=== PATIENT | female | born 1980 | race Caucasian/White ===

== ENCOUNTER → 2019-10-06 | Outpatient (CLI) | payer OTHER ==
--- NOTE | 2019-10-06 09:12 | MM ---
Reason for exam: additional evaluation requested from prior study. History: Took hormonal contraceptives for 11 years. Physical Findings: Nurse did not find any significant physical abnormalities on exam. [facility] Mammo w CAD KAYLEE Bilateral CC and MLO view(s) were taken. No prior studies available for comparison. The breast tissue is heterogeneously dense. This may lower the sensitivity of mammography. There is no discrete abnormality. These results were verbally communicated with the patient and result sheet given to the patient on 10/06/19. ASSESSMENT: Negative, BI-RAD 1 RECOMMENDATION: Routine screening mammogram of both breasts in 1 year.
--- NOTE | 2019-10-06 09:13 | USB ---
Reason for exam: clinical finding. History: Took hormonal contraceptives for 11 years. US Breast BILAT Right complete breast ultrasound includes all four quadrants, the retroareolar region and axilla. Finding demonstrates no cystic or solid lesion seen. Left complete breast ultrasound includes all four quadrants, the retroareolar region and axilla. Finding demonstrates no cystic or solid lesion seen. These results were verbally communicated with the patient and result sheet given to the patient on 10/06/19. ASSESSMENT: Negative, BI-RAD 1 RECOMMENDATION: Routine screening mammogram of both breasts in 1 year. Manage patient on a clinical basis.
== END | disposition home or self-care (01) ==
LOC: RADMAMWWP 07:34
PROVIDERS: ATTEND Family Medicine
DX: N64.4 Mastodynia (principal)
CPT/HCPCS: 77066

== ENCOUNTER → 2021-09-29 | Outpatient (CLI) | payer OTHER ==
--- NOTE | 2021-09-29 15:58 | US ---
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 Lipoma of upper arm per order. Palpable area x 1 month within the left upper arm. Scanned patient's palpable area of concern within the left medial upper arm. Area of tissue seen with indistinct borders that appears isoechoic to surrounding tissue. Questionabl e- normal tissue versus other. This area appears to measure 3.1 x 3.3 x 1.3 cm. IMPRESSION: 1. Consider a lipoma of the extremity. This could be further evaluated with MRI.
== END | disposition home or self-care (01) ==
LOC: RADUSWWP 15:30
PROVIDERS: ATTEND Family Medicine
DX: D17.20 Benign lipomatous neoplasm of skin and subcutaneous tissue of unspecified limb (principal)

== ENCOUNTER → 2022-06-16 | Outpatient (CLI) | payer OTHER ==
--- NOTE | 2022-06-17 07:48 | US ---
EXAMINATION TYPE: US transvaginal DATE OF EXAM: 06/16/2022 COMPARISON: NONE CLINICAL HISTORY: 41-year-old female R14.0 ABDOMINAL DISTENSION (GASEOUS). Patient states having diar olivia, N/V, and bloating. Uterus removed. TECHNIQUE: Transvaginal (TV). Date of LMP: Unknown FINDINGS: EXAM MEASUREMENTS: Right Ovary: 3.0 x 1.8 x 1.6 cm for a volume of 4.5 mL. Left Ovary: 2.6 x 1.6 x 2.2 cm for a volume of 4.9 mL. 1. Uterus: Surgically absent 2. Endometrium: Surgically absent 3. Right Ovary: Follicles seen 4. Left Ovary: Follicles seen 5. Bilateral Adnexa: wnl 6. Posterior cul-de-sac: no free fluid IMPRESSION: Status post hysterectomy. No evident adnexal abnormality. Follicular change in both ovaries.
== END | disposition home or self-care (01) ==
LOC: RADUSWWP 16:19
PROVIDERS: ATTEND Family Medicine
DX: R14.0 Abdominal distension (gaseous) (principal); Z90.710 Acquired absence of both cervix and uterus
CPT/HCPCS: 76830

== ENCOUNTER → 2022-12-18 | Outpatient (CLI) | payer OTHER ==
--- NOTE | 2022-12-18 17:01 | NM ---
EXAMINATION TYPE: NM hepatobiliary w CCK DATE OF EXAM: 12/18/2022 COMPARISON: NONE CLINICAL INDICATION: Female, 42 years old with history of R10.11 RIGHT UPPER QUADRANT PAIN; TECHNIQUE: After the intravenous administration of 5.1 mCi Tc 99m Mebrofenin hepatobiliary scintigrap hy is performed. Immediate images post injection. FINDINGS: There is satisfactory initial accumulation of tracer by the liver. The gallbladder is visualized wit hin 20 minutes. The small bowel activity is noted within 10 minutes. At one hour CCK was administer ed, patient was injected with 1.86 mcg of Kinevac, and gallbladder ejection fraction is calculated at 24%. IMPRESSION: Diminished gallbladder ejection fraction which may reflect chronic cholecystitis and/or b iliary dyskinesia.
== END | disposition home or self-care (01) ==
LOC: RADNMMAIN 12:32
PROVIDERS: ATTEND Family Medicine
DX: R10.11 Right upper quadrant pain (principal)
CPT/HCPCS: 78227; A9537; J2805

== ENCOUNTER 2023-06-10 11:12 | Day surgery (SDC) | payer OTHER ==
[2023-06-07 16:01] VITALS: BMI 33.6
[~2023-06-10 11:12] MED LIST: HYDROmorphone 0.5 MG/0.5 ML SYRINGE IVP PRN; LACTATED RINGERS 1,000 ML IV SCH
[2023-06-10 11:54] VITALS: RESP 16
[2023-06-10] MEDS: LACTATED RINGERS 1,000 ML IV SCH (12:04)
[2023-06-10] MEDS: ACETAMINOPHEN TAB 500 MG TAB PO PRN (12:17)
[2023-06-10] MEDS: HEPARIN SODIUM,PORCINE 5,000 UNIT/ML 1 ML VIAL SQ PRN (12:17)
[2023-06-10] MEDS: ONDANSETRON 4 MG/2 ML VIAL IVP ONE (12:17)
[2023-06-10] MEDS: DEXAMETHASONE SOD PHOSPHATE 4 MG/ML 1 ML VIAL IV ONE (12:17)
[2023-06-10 12:23] LABS: HCT 44.7 % (34.0-46.0); HGB 15.8 gm/dL (11.4-16.0); MCH 31.4 pg (25.0-35.0); MCHC 35.3 g/dL (31.0-37.0); MCV 88.9 fL (80.0-100.0); Platelet Count 255 k/uL (150-450); RBC 5.02 m/uL (3.80-5.40); RDW 13.5 % (11.5-15.5); WBC 10.4 k/uL (3.8-10.6)
[2023-06-10] MEDS ORDERED: PROPOFOL 10 MG/ML 20 ML VIAL IV ONE (12:49)
[2023-06-10] MEDS ORDERED: ROCURONIUM 10 MG/ML (5 ML VIAL) IV ONE (12:49)
[2023-06-10] MEDS ORDERED: KETOROLAC 15 MG/ML 1 ML VIAL ONE (12:49)
[2023-06-10] MEDS ORDERED: SUCCINYLCHOLINE CHLORIDE 200 MG/10 ML VIAL IV ONE (12:49)
[2023-06-10] MEDS ORDERED: GLYCOPYRROLATE 0.2 MG/ML 2 ML VIAL ONE (12:49)
[2023-06-10] MEDS ORDERED: fentaNYL (PF) 50 MCG/ML 2 ML AMP ONE (12:49)
[2023-06-10] MEDS ORDERED: LIDOCAINE 1% INJ 10MG/ML (20 ML MDV) ONE (12:49)
[2023-06-10] MEDS ORDERED: HYDROmorphone (PF) 1 MG/ML ONE (12:49)
[2023-06-10] MEDS ORDERED: MIDAZOLAM 2 MG/2 ML VIAL ONE (12:49)
[2023-06-10] MEDS ORDERED: NEOSTIGMINE 1 MG/ML 10 ML VIAL ONE (12:49)
[2023-06-10 13:04] LABS: African American GFR (CKD) >90 (>60 ml/min/1.73 sqM); Anion Gap 8 mmol/L; Blood Urea Nitrogen 8 mg/dL (7-17); Calcium 9.4 mg/dL (8.4-10.2); Carbon Dioxide 23 mmol/L (22-30); Chloride 107 mmol/L (98-107); Glucose 77 mg/dL (74-99); Non-African American GFR(CKD) >90 (>60 ml/min/1.73 sqM); Potassium 4.6 mmol/L (3.5-5.1); Sodium 138 mmol/L (137-145)
[2023-06-10] MEDS: BUPIVACAINE (PF) 0.25% 30 ML VIAL SQ ONE (13:15)
--- NOTE | 2023-06-10 13:57 | P.OP ---
Date of Procedure: 06/10/23 Procedure(s) Performed: PREOPERATIVE DIAGNOSIS: Biliary dyskinesia POSTOPERATIVE DIAGNOSIS: Same PROCEDURE: Laparoscopic cholecystectomy SURGEON: Collins EBL: Minimal see anesthesia record ANESTHESIA: Gen. COMPLICATIONS: None OPERATIVE PROCEDURE: The patient was brought and placed on the operating room table in the supine position. The patient was placed under general anesthesia at that time. The abdomen was prepped and draped in the usual sterile fashion. A small vertical infraumbilical incision was made. The fascia was grasped with the Sarahi forceps. The fascia was retracted anteriorly. The Veress needle was advanced into the peritoneal cavity. The saline drop test was normal. Insufflation took place up to 15 mmHg. A 5 mm optical trocar was advanced and the peritoneal cavity. 2 additional 5 mm trochars were placed in the right upper quadrant under direct visualization. A 12 mm trocar was advanced into the epigastric incision site. The gallbladder was retracted superiorly and laterally. The peritoneum overlying the infundibulum was bluntly dissected. The patient's cystic duct was visualized. The junction between the cystic duct common and hepatic duct was identified. The critical view of safety was achieved after blunt dissection. The cystic duct was then divided after p lacement of 3 12 mm clips on the patient's side and one on the specimen side. The cystic artery was identified and clipped as well. A small vessel was seen along the gallbladder fossa and clipped as well. The gallbladder was then removed from the liver bed using electrocautery. The gallbladder was then removed from the epigastric trocar site with an Endo Catch bag. The gallbladder fossa was irrigated with saline. There was no evidence of any bleeding or biliary drainage seen. The fascia at the 12 millimeter site was closed using a Oscar-Crow 0 Vicryl stitch. The trochars were then removed. The skin at all 4 sites was closed using a 4-0 Monocryl stitch. Skin glue was utilized on the incision sites. At the end of this procedure the sponge and needle counts were correct. DISPOSITION: Stable to the recovery room
[2023-06-10 14:36] VITALS: TEMP 96.8
[2023-06-10 15:13] VITALS: BP 148/98
[2023-06-10 15:14] VITALS: PULSE 78
[2023-06-10] MEDS ORDERED: ONDANSETRON 4 MG/2 ML VIAL ONE (15:16)
[2023-06-10] MEDS: droPERidol 5 MG/2 ML VIAL IVP ONE (16:15)
== END 2023-06-10 17:15 | disposition home or self-care (01) ==
LOC: OR 11:12
PROVIDERS: ATTEND Surgery
DX: K81.2 Acute cholecystitis with chronic cholecystitis (principal); I10 Essential (primary) hypertension; K21.9 Gastro-esophageal reflux disease without esophagitis; F12.90 Cannabis use, unspecified, uncomplicated; Z79.899 Other long term (current) drug therapy; Z90.710 Acquired absence of both cervix and uterus; Z91.040 Latex allergy status
CPT/HCPCS: 88304; 80048; 85027; 47562; J2250; J0330; J1644; J1100; J2710; J0690; J2405; J2001; J3010; J1170; J1885; J2704; J1790; J0665

== ENCOUNTER → 2024-02-19 | Outpatient (CLI) | payer OTHER ==
[2024-02-19 23:00] LABS: ALT 50 U/L (8-44); AST 38 U/L (13-35); Albumin 4.7 g/dL (3.8-4.9); Albumin/Globulin Ratio 1.96 Ratio (1.60-3.17); Alkaline Phosphatase 62 U/L (41-126); BUN/Creat Ratio 11.57 Ratio (12.00-20.00); Blood Urea Nitrogen 8.1 mg/dL (9.0-27.0); Calcium 9.6 mg/dL (8.7-10.3); Carbon Dioxide 24.5 mmol/L (21.6-31.8); Chloride 102 mmol/L (96-109); Globulin 2.4 g/dL (1.6-3.3); Glucose 84 mg/dL (70-110); Potassium 4.6 mmol/L (3.5-5.5); Sodium 139 mmol/L (135-145); Total Bilirubin 0.5 mg/dL (0.3-1.2); Total Protein 7.1 g/dL (6.2-8.2)
== END | disposition home or self-care (01) ==
LOC: LABWHC1 10:43
PROVIDERS: ATTEND Internal Medicine Rheumatology
DX: Z51.81 Encounter for therapeutic drug level monitoring (principal); M06.9 Rheumatoid arthritis, unspecified; M79.673 Pain in unspecified foot; M79.643 Pain in unspecified hand; M25.569 Pain in unspecified knee; R73.03 Prediabetes; R79.89 Other specified abnormal findings of blood chemistry; Z79.899 Other long term (current) drug therapy
CPT/HCPCS: 36415; 80053

== ENCOUNTER → 2024-06-02 | Outpatient (CLI) | payer OTHER ==
--- NOTE | 2024-06-02 07:43 | US ---
EXAMINATION TYPE: US abdomen complete DATE OF EXAM: 06/02/2024 COMPARISON: NONE CLINICAL INDICATION: Female, 43 years old with history of R74.01 ELEVATION OF LIVER TRANSAMINASE LEVE LS; Elevated LFT's, GB surgically absent TECHNIQUE: Grayscale and color Doppler imaging of the abdomen was performed. FINDINGS: EXAM MEASUREMENTS: Liver Length: 22.5 cm CBD: 0.4 cm, color Doppler imaging was utilized to isolate the common bile duct for measurement. Spleen: 10.1 cm Right Kidney: 11.9 x 4.0 x 5.1 cm Left Kidney: 12.4 x 4.9 x 5.2 cm [employer] NOTES: Pancreas: wnl Liver: Enlarged, heterogeneous, difficult to penetrate Gallbladder: Surgically absent Evidence for sonographic Kay's sign: No CBD: wnl Spleen: Specular reflections scattered throughout Right Kidney: wnl, No hydronephrosis, calculi or masses seen Left Kidney: wnl, No hydronephrosis, calculi or masses seen Upper IVC: wnl Abd Aorta: wnl The liver is enlarged in size and heterogeneously hyperechoic in appearance. This limits evaluation f or focal masses. No ascites is seen. The intrahepatic portion of the IVC and proximal abdominal aort a are within normal limits. Gallbladder is surgically absent. Common bile duct is unremarkable. The visualized portions of the pancreas are homogenous. The spleen is unremarkable. Kidneys are symmet so and free of hydronephrosis. No renal lesions are seen. IMPRESSION: Hepatomegaly. Suspected marked diffuse fatty infiltration of liver. No ascites. [facility], , 06/02/2024 7:41 AM
== END | disposition home or self-care (01) ==
LOC: RADUSWWP 06:55
PROVIDERS: ATTEND Family Medicine
DX: K76.0 Fatty (change of) liver, not elsewhere classified (principal); R74.01 Elevation of levels of liver transaminase levels; R16.0 Hepatomegaly, not elsewhere classified
CPT/HCPCS: 76700

== ENCOUNTER → 2024-06-08 | Outpatient (CLI) | payer OTHER ==
[2024-06-08 20:00] LABS: % Iron Saturation 14.32 (12.00-45.00); ALT 67 U/L (8-44); AST 62 U/L (13-35); Albumin 4.7 g/dL (3.8-4.9); Albumin/Globulin Ratio 2.14 Ratio (1.60-3.17); Alkaline Phosphatase 73 U/L (41-126); BUN/Creat Ratio 16.14 Ratio (12.00-20.00); Blood Urea Nitrogen 11.3 mg/dL (9.0-27.0); Calcium 9.7 mg/dL (8.7-10.3); Carbon Dioxide 26.7 mmol/L (21.6-31.8); Chloride 99 mmol/L (96-109); Globulin 2.2 g/dL (1.6-3.3); Glucose 119 mg/dL (70-110); Iron 61 UG/DL (50-170); Potassium 4.1 mmol/L (3.5-5.5); Sodium 139 mmol/L (135-145); Total Bilirubin 0.3 mg/dL (0.3-1.2); Total Iron Binding Capacity 426 UG/DL (228-460); Total Protein 6.9 g/dL (6.2-8.2)
[2024-06-08 20:23] LABS: Ceruloplasmin 23.9 mg/dL (20.0-60.0)
[2024-06-08 21:27] LABS: Hepatitis C IgG Antibody Nonreactive (Nonreactive)
[2024-06-08 22:54] LABS: Hepatitis B Surface Antigen Nonreactive (Nonreactive)
== END | disposition home or self-care (01) ==
LOC: LABWHC1 14:03
PROVIDERS: ATTEND Internal Medicine Gastroenterology
DX: R74.01 Elevation of levels of liver transaminase levels (principal)
CPT/HCPCS: 36415; 80053; 82103; 82104; 82390; 82728; 83540; 83550; 86038; 86803; 87340